=== PATIENT | female | born 1990 | race Caucasian/White ===

== ENCOUNTER → 2017-02-25 | Outpatient (CLI) | payer OTHER | LOC: FIMAGING 13:00 | PROVIDERS: ATTEND Obstetrics & Gynecology | DX: Z36.82 Encounter for antenatal screening for nuchal translucency (principal) ==

== ENCOUNTER → 2017-04-28 | Outpatient (CLI) | payer BC | LOC: FIMAGING 11:52 | PROVIDERS: ATTEND Obstetrics & Gynecology | DX: Z34.02 Encounter for supervision of normal first pregnancy, second trimester (principal); Z3A.20 20 weeks gestation of pregnancy ==